=== PATIENT | female | born 1975 | race Two or more races ===

== ENCOUNTER 2024-07-10 13:53 | Emergency (ER) | payer OTHER ==
[~2024-07-10] VITALS: Ht 149.9 cm; Wt 54.4 kg
[2024-07-10] MEDS ORDERED: DIPHENHYDRAMINE HCL 50 MG/ML VIAL 1ML IV STA (14:40)
[2024-07-10] MEDS ORDERED: METHYLPREDNISOLONE SOD SUCC 125 MG VIAL IV STA (14:40)
[2024-07-10] MEDS ORDERED: DIPHENHYDRAMINE HCL 50 MG/ML VIAL 1ML ONE (14:40)
[2024-07-10] MEDS ORDERED: METHYLPREDNISOLONE SOD SUCC 125 MG VIAL ONE (14:40)
[2024-07-10] MEDS ORDERED: hydrOXYzine PAMOATE 25 MG CAPSULE PO STA (15:43)
[2024-07-10] MEDS ORDERED: hydrOXYzine PAMOATE 25 MG CAPSULE PO ONE (16:14)
== END 2024-07-10 18:21 | disposition home or self-care (01) ==
LOC: ER 13:54
DX: R21 Rash and other nonspecific skin eruption (principal); Z88.1 Allergy status to other antibiotic agents; Z88.8 Allergy status to other drugs, medicaments and biological substances
CPT/HCPCS: 96365; 99282; J1200; J3490